=== PATIENT | female | born 1980 | race American Indian/Alaskan Native ===

== ENCOUNTER 2017-01-28 09:45 | Emergency (ER) | payer SELFPAY ==
[2017-01-28 09:56] VITALS: BP 163/114
[2017-01-28] MEDS ORDERED: FUL-GLO OP ONE ×2 (12:08→12:09)
[2017-01-28] MEDS ORDERED: TETRACAINE 0.5% OD ONE (12:08)
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
[2017-01-28] MEDS ORDERED: TETRACAINE 0.5% ONE (12:10)
[2017-01-28] MEDS ORDERED: BSS ONE (12:10)
[2017-01-28] MEDS ORDERED: MARCAINE 0.5% INFILTRATI ONE (12:13)
[2017-01-28] MEDS ORDERED: NACL 0.9% IR ONE (12:13)
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
== END 2017-01-28 15:17 | disposition home or self-care (01) ==
LOC: EDBD → ED 09:45
DX: S02.2XXA Fracture of nasal bones, initial encounter for closed fracture (principal); S01.81XA Laceration without foreign body of other part of head, initial encounter; S05.11XA Contusion of eyeball and orbital tissues, right eye, initial encounter; E66.9 Obesity, unspecified; W01.0XXA Fall on same level from slipping, tripping and stumbling without subsequent striking against object, initial encounter; Y93.9 Activity, unspecified; Y99.9 Unspecified external cause status; Y92.009 Unspecified place in unspecified non-institutional (private) residence as the place of occurrence of the external cause
CPT/HCPCS: 70450; 70486; 81025